=== PATIENT | female | born 1960 ===

== ENCOUNTER 2020-01-23 06:11 | Emergency (ER) | payer OTHER ==
[~2020-01-23] VITALS: Ht 157.5 cm; Wt 90.7 kg
[2020-01-23] MEDS ORDERED: HYZAAR 100-12.1 EACH (06:31)
[2020-01-23] MEDS ORDERED: KETO10TA2 PO (10:37)
[2020-01-23] MEDS ORDERED: ORPHENADRINE C100 MG PO (10:37)
== END 2020-01-23 10:42 | disposition home or self-care (01) ==
LOC: ER 06:11
DX: M54.89 Other dorsalgia (principal); K29.60 Other gastritis without bleeding